=== PATIENT | male | born 1945 | race Caucasian/White ===

== ENCOUNTER 2019-11-06 17:47 | Inpatient (IN) ==
[2019-11-06] MEDS ORDERED: Potassium Chloride Elixir 20 MEQ/15 ML UDC PO ONE (18:22)
[2019-11-06] MEDS ORDERED: Pantoprazole 40 MG VIAL IVP ONE (18:39)
[2019-11-06 19:27] LABS: Hematocrit 34.9 % (37.5-50.1); Hemoglobin 11.2 g/dL (12.9-16.9)
[2019-11-06] MEDS ORDERED: Naloxone 0.4 MG/ML INJ IVP PRN (20:54)
[2019-11-06] MEDS ORDERED: Ondansetron 4 MG/2 ML VIAL IVP PRN (20:54)
[2019-11-06] MEDS ORDERED: 0.9 % Sodium Chloride 1,000 ML IVC SCH (21:00)
[2019-11-06 21:36] LABS: Basophils % 0.3 %; Eosinophils # 0.4 K/mcL (0.0-0.6); Eosinophils % 2.3 %; Hematocrit 34.9 % (37.5-50.1); Hemoglobin 11.5 g/dL (12.9-16.9); Immature Granulocytes % 0.4 % (0-4); Lymphocytes # 1.5 K/mcL (0.6-4.6); Lymphocytes % 9.9 %; Mean Corpuscular Hemoglobin 26.1 pg (28.0-33.3); Mean Corpuscular Volume 79.1 fL (83.0-100.0); Mean Platelet Volume 10.7 fL (9.4-12.4); Monocytes # 1.1 K/mcL (0.0-1.3); Neutrophils # 12.5 K/mcL (1.6-8.9); Platelet Count 419 K/mcL (140-400); Red Blood Count 4.41 M/mcL (4.19-5.50); Red Cell Distribution Width 14.5 % (11.5-14.5); Segmented Neutrophils % 80.1 %; White Blood Count 15.6 K/mcL (4.3-11.1)
[2019-11-06 21:41] LABS: INR 1.3; Prothrombin Time 14.9 Seconds (9.4-12.1)
[2019-11-06 21:43] LABS: Activated Partial Thrombo Time 38.5 Seconds (26.0-36.0)
[2019-11-06 21:55] LABS: BUN/Creatinine Ratio 24 (6-26); Blood Urea Nitrogen 22 mg/dL (8-23); Calcium 8.7 mg/dL (8.6-10.3); Carbon Dioxide 27 mEq/L (23-29); Chloride 99 mEq/L (98-107); Glucose 126 mg/dL (70-105); Osmolality,Calculated 285 (280-300); Potassium 3.6 mEq/L (3.5-5.1); Sodium 135 mEq/L (136-145); eGFR For African Americans > 60 (> 60); eGFR For Non-African Americans > 60 (> 60)
[2019-11-06] MEDS ORDERED: cefTRIAXone 1,000 MG in Water for inj. (sterile) 10 ML IVP ONE (23:31)
[2019-11-06] MEDS: Gabapentin 400 MG CAPSULE PO SCH (23:48)
[2019-11-06] MEDS: carvediloL 25 MG TABLET PO SCH (23:49)
[2019-11-07 01:15] LABS: Hematocrit 32.7 % (37.5-50.1); Hemoglobin 10.7 g/dL (12.9-16.9)
[2019-11-07 05:45] LABS: Basophils % 0.4 %; Eosinophils # 0.5 K/mcL (0.0-0.6); Eosinophils % 4.3 %; Hemoglobin 10.4 g/dL (12.9-16.9); Immature Granulocytes % 0.4 % (0-4); Lymphocytes # 1.6 K/mcL (0.6-4.6); Lymphocytes % 14.2 %; Mean Corpuscular HGB Conc 32.5 g/dL (31.6-35.5); Mean Corpuscular Hemoglobin 25.8 pg (28.0-33.3); Mean Corpuscular Volume 79.4 fL (83.0-100.0); Monocytes # 0.9 K/mcL (0.0-1.3); Neutrophils # 8.3 K/mcL (1.6-8.9); Platelet Count 353 K/mcL (140-400); Red Blood Count 4.03 M/mcL (4.19-5.50); Red Cell Distribution Width 14.5 % (11.5-14.5); Segmented Neutrophils % 72.7 %; White Blood Count 11.4 K/mcL (4.3-11.1)
[2019-11-07 06:00] LABS: % Iron Saturation 8 % (20-55); Iron 19 mcg/dL (65-175); Transferrin 174 mg/dL (203-362)
[2019-11-07 06:01] LABS: BUN/Creatinine Ratio 22 (6-26); Blood Urea Nitrogen 19 mg/dL (8-23); Calcium 8.3 mg/dL (8.6-10.3); Carbon Dioxide 25 mEq/L (23-29); Chloride 103 mEq/L (98-107); Glucose 113 mg/dL (70-105); Osmolality,Calculated 289 (280-300); Potassium 3.3 mEq/L (3.5-5.1); Sodium 138 mEq/L (136-145); eGFR For African Americans > 60 (> 60); eGFR For Non-African Americans > 60 (> 60)
[2019-11-07] MEDS: Pantoprazole 40 MG VIAL IVP SCH ×2 (06:19→17:12)
[2019-11-07] MEDS ORDERED: Potassium Chloride 40 MEQ, Lidocaine 1% 2 ML in 0.9 % Sodium Chloride 500 ML IVPB ONE (08:19)
[2019-11-07] MEDS: carvediloL 25 MG TABLET PO SCH ×2 (08:37→17:11)
[2019-11-07] MEDS: Gabapentin 400 MG CAPSULE PO SCH ×2 (08:37→21:50)
[2019-11-07] MEDS ORDERED: Acetaminophen 325 MG TABLET PO PRN (11:34)
[2019-11-07 12:37] LABS: Hematocrit 31.8 % (37.5-50.1)
[2019-11-07] MEDS ORDERED: SODIUM CHLORIDE/NAHCO3/KCL/PEG 4,000 ML SOLN.RECON PO ONE (17:00)
[2019-11-07 20:49] LABS: Hematocrit 33.6 % (37.5-50.1); Hemoglobin 10.6 g/dL (12.9-16.9)
[2019-11-08 05:06] LABS: Basophils % 0.5 %; Eosinophils # 0.7 K/mcL (0.0-0.6); Hematocrit 31.3 % (37.5-50.1); Immature Granulocytes % 0.4 % (0-4); Lymphocytes # 1.9 K/mcL (0.6-4.6); Mean Corpuscular HGB Conc 31.9 g/dL (31.6-35.5); Mean Corpuscular Hemoglobin 25.7 pg (28.0-33.3); Mean Corpuscular Volume 80.5 fL (83.0-100.0); Mean Platelet Volume 10.8 fL (9.4-12.4); Monocytes # 0.8 K/mcL (0.0-1.3); Monocytes % 9.4 %; Neutrophils # 4.7 K/mcL (1.6-8.9); Platelet Count 327 K/mcL (140-400); Red Blood Count 3.89 M/mcL (4.19-5.50); Red Cell Distribution Width 14.5 % (11.5-14.5); Segmented Neutrophils % 57.7 %; White Blood Count 8.1 K/mcL (4.3-11.1)
[2019-11-08 05:22] LABS: BUN/Creatinine Ratio 19 (6-26); Blood Urea Nitrogen 16 mg/dL (8-23); Calcium 8.2 mg/dL (8.6-10.3); Carbon Dioxide 25 mEq/L (23-29); Chloride 107 mEq/L (98-107); Glucose 90 mg/dL (70-105); Osmolality,Calculated 293 (280-300); Potassium 3.1 mEq/L (3.5-5.1); Sodium 141 mEq/L (136-145); eGFR For African Americans > 60 (> 60); eGFR For Non-African Americans > 60 (> 60)
[2019-11-08] MEDS: Pantoprazole 40 MG VIAL IVP SCH (06:18)
[2019-11-08] MEDS ORDERED: Lidocaine -MPF 2% 2 ML VIAL ONE (07:00)
[2019-11-08] MEDS ORDERED: Potassium Chloride 40 MEQ, Lidocaine 1% 2 ML in 0.9 % Sodium Chloride 500 ML IVPB ONE (07:08)
[2019-11-08] MEDS ORDERED: 0.9 % Sodium Chloride 1,000 ML IVC SCH (07:30)
[2019-11-08 07:53] LABS: Magnesium 2.1 mg/dL (1.6-2.6)
[2019-11-08] MEDS ORDERED: Isovue-370 500 ML BOTTLE IVP ONE ×2 (09:22→12:25)
[2019-11-08] MEDS: Gabapentin 400 MG CAPSULE PO SCH ×2 (09:28→21:25)
[2019-11-08] MEDS: carvediloL 25 MG TABLET PO SCH ×2 (09:28→16:17)
[2019-11-08] MEDS ORDERED: Simethicone 40 MG/0.6 ML MLS IR ONE (09:30)
[2019-11-08 16:14] LABS: Hepatitis B Surface Antibody < 3.10 mIU/mL
[2019-11-08] MEDS: Sucralfate 1 GM TABLET PO SCH (16:17)
[2019-11-08 16:24] LABS: Hepatitis B Surface Antigen Nonreactive (Nonreactive)
[2019-11-08 16:53] LABS: Hepatitis B Core IgM Nonreactive (Nonreactive)
[2019-11-09 02:51] LABS: Basophils # 0.1 K/mcL (0.0-0.2); Basophils % 0.6 %; Eosinophils # 0.7 K/mcL (0.0-0.6); Eosinophils % 8.4 %; Hematocrit 30.6 % (37.5-50.1); Hemoglobin 9.7 g/dL (12.9-16.9); Immature Granulocytes % 0.3 % (0-4); Lymphocytes # 1.8 K/mcL (0.6-4.6); Lymphocytes % 22.8 %; Mean Corpuscular HGB Conc 31.7 g/dL (31.6-35.5); Mean Corpuscular Hemoglobin 25.8 pg (28.0-33.3); Mean Corpuscular Volume 81.4 fL (83.0-100.0); Mean Platelet Volume 11.3 fL (9.4-12.4); Monocytes # 0.7 K/mcL (0.0-1.3); Monocytes % 8.8 %; Neutrophils # 4.6 K/mcL (1.6-8.9); Platelet Count 341 K/mcL (140-400); Red Blood Count 3.76 M/mcL (4.19-5.50); Red Cell Distribution Width 14.3 % (11.5-14.5); Segmented Neutrophils % 59.1 %; White Blood Count 7.7 K/mcL (4.3-11.1)
[2019-11-09 03:10] LABS: BUN/Creatinine Ratio 12 (6-26); Blood Urea Nitrogen 9 mg/dL (8-23); Calcium 8.4 mg/dL (8.6-10.3); Carbon Dioxide 23 mEq/L (23-29); Chloride 108 mEq/L (98-107); Glucose 105 mg/dL (70-105); Osmolality,Calculated 287 (280-300); Potassium 3.3 mEq/L (3.5-5.1); Sodium 139 mEq/L (136-145); eGFR For African Americans > 60 (> 60); eGFR For Non-African Americans > 60 (> 60)
[2019-11-09] MEDS ORDERED: Potassium Chloride 40 MEQ, Lidocaine 1% 2 ML in 0.9 % Sodium Chloride 500 ML IVPB ONE (07:14)
[2019-11-09] MEDS: Sucralfate 1 GM TABLET PO SCH ×3 (07:55→16:58)
[2019-11-09] MEDS: Gabapentin 400 MG CAPSULE PO SCH ×2 (07:55→20:41)
[2019-11-09] MEDS: carvediloL 25 MG TABLET PO SCH ×2 (07:55→16:58)
[2019-11-10 02:04] LABS: Basophils # 0.1 K/mcL (0.0-0.2); Basophils % 0.6 %; Eosinophils # 0.7 K/mcL (0.0-0.6); Eosinophils % 8.1 %; Hematocrit 32.8 % (37.5-50.1); Hemoglobin 10.3 g/dL (12.9-16.9); Immature Granulocytes % 0.5 % (0-4); Lymphocytes # 1.9 K/mcL (0.6-4.6); Lymphocytes % 21.1 %; Mean Corpuscular HGB Conc 31.4 g/dL (31.6-35.5); Mean Corpuscular Hemoglobin 25.1 pg (28.0-33.3); Mean Platelet Volume 10.8 fL (9.4-12.4); Monocytes # 0.7 K/mcL (0.0-1.3); Monocytes % 7.8 %; Neutrophils # 5.5 K/mcL (1.6-8.9); Platelet Count 354 K/mcL (140-400); Red Cell Distribution Width 14.4 % (11.5-14.5); Segmented Neutrophils % 61.9 %; White Blood Count 8.9 K/mcL (4.3-11.1)
[2019-11-10 02:22] LABS: BUN/Creatinine Ratio 12 (6-26); Blood Urea Nitrogen 9 mg/dL (8-23); Calcium 8.6 mg/dL (8.6-10.3); Carbon Dioxide 24 mEq/L (23-29); Chloride 106 mEq/L (98-107); Glucose 92 mg/dL (70-105); Osmolality,Calculated 284 (280-300); Potassium 3.4 mEq/L (3.5-5.1); Sodium 138 mEq/L (136-145); eGFR For African Americans > 60 (> 60); eGFR For Non-African Americans > 60 (> 60)
[2019-11-10] MEDS: Gabapentin 400 MG CAPSULE PO SCH ×2 (07:51→20:29)
[2019-11-10] MEDS: carvediloL 25 MG TABLET PO SCH ×2 (07:52→17:30)
[2019-11-10] MEDS: Sucralfate 1 GM TABLET PO SCH ×3 (07:52→17:30)
[2019-11-10] MEDS: amLODIPine 5 MG TABLET PO SCH (07:52)
[2019-11-10] MEDS ORDERED: *HR* Propofol 500 MG/50 ML BOTTLE IVC ONE (12:14)
[2019-11-10] MEDS ORDERED: Lidocaine 2% Syringe 100 MG/5 ML IV ONE (12:14)
[2019-11-10] MEDS ORDERED: E-Z-PAQUE (BARIUM SULF) SUSP 1 BOTTLE PO ONE (15:54)
[2019-11-10 20:47] LABS: Adenovirus F 40/41 PCR Not detected (Not detect); Astrovirus PCR Not detected (Not detect); C.difficile Toxin A/B Gene PCR Not detected (Not detect); Campylobacter by PCR Not detected (Not detect); Cryptosporidium by PCR Not detected (Not detect); Cyclospora cayetanensis PCR Not detected (Not detect); E. coli O157 by PCR Not detected (Not detect); Entamoeba histolytica PCR Not detected (Not detect); Enteroaggregative E.coli(EAEC) Not detected (Not detect); Enteropathogenic E.coli(EPEC) Not detected (Not detect); Enterotoxigenic E.coli (ETEC) Not detected (Not detect); Giardia lamblia PCR Not detected (Not detect); Norovirus GI/GII PCR Not detected (Not detect); Plesiomonas shigelloides PCR Not detected (Not detect); Rotavirus A PCR Not detected (Not detect); Salmonella PCR Not detected (Not detect); Sapovirus PCR Not detected (Not detect); Shig/EnteroinvasiveE coli EIEC Not detected (Not detect); Shigalike tox-prod E coli STEC Not detected (Not detect); Vibrio PCR Not detected (Not detect); Vibrio cholerae PCR Not detected (Not detect); Yersinia enterocolitica PCR Not detected (Not detect)
[2019-11-10 23:03] LABS: QuantiFERON Mitogen minus NIL 4.68 IU/mL
[2019-11-11 07:27] VITALS: BP 127/75
[2019-11-11 08:12] LABS: BUN/Creatinine Ratio 18 (6-26); Blood Urea Nitrogen 15 mg/dL (8-23); Calcium 8.8 mg/dL (8.6-10.3); Carbon Dioxide 24 mEq/L (23-29); Chloride 100 mEq/L (98-107); Glucose 91 mg/dL (70-105); Magnesium 2.1 mg/dL (1.6-2.6); Osmolality,Calculated 290 (280-300); Potassium 3.7 mEq/L (3.5-5.1); Sodium 140 mEq/L (136-145); eGFR For African Americans > 60 (> 60); eGFR For Non-African Americans > 60 (> 60)
[2019-11-11] MEDS: carvediloL 25 MG TABLET PO SCH (09:09)
[2019-11-11] MEDS: Sucralfate 1 GM TABLET PO SCH ×2 (09:09→11:44)
[2019-11-11] MEDS: amLODIPine 5 MG TABLET PO SCH (09:13)
[2019-11-11] MEDS: Gabapentin 400 MG CAPSULE PO SCH (09:13)
[2019-11-11 11:22] LABS: QuantiFERON-TB Gold In-Tube NEGATIVE (Negative)
[2019-11-12 07:10] LABS: Saccharomyces cerevisiae IgA 4.6 Units (0.0-24.9)
== END 2019-11-11 12:15 | disposition home or self-care (01) | DRG 378 ==
LOC: 3ANU 17:47 → EMEROOARM 17:47 → SUATTDRO 19:42 → 3ANU 20:28
PROVIDERS: ADMIT Internal Medicine; ATTEND Internal Medicine

== ENCOUNTER 2019-12-06 06:41 | Inpatient (IN) ==
[~2019-12-06 06:41] MED LIST: Acetaminophen IV 1,000 MG/100 ML INFUS..BTL IVPB ONE
[2019-12-06] MEDS ORDERED: Acetaminophen IV 1,000 MG/100 ML INFUS..BTL IVPB ONE (08:00)
[2019-12-06] MEDS ORDERED: Famotidine 20 MG/2 ML VIAL IVP ONE (08:00)
[2019-12-06] MEDS ORDERED: cefOXitin 2,000 MG in Water for inj. (sterile) 20 ML IVP ONE (08:05)
[2019-12-06] MEDS ORDERED: *HR* Midazolam HCl 2 MG/2 ML VIAL ONE (08:06)
[2019-12-06] MEDS ORDERED: *HR* Propofol 200 MG/20 ML VIAL IVP ONE (08:06)
[2019-12-06] MEDS ORDERED: Dexamethasone 4 MG/ML VIAL ONE (08:06)
[2019-12-06] MEDS ORDERED: Lidocaine -MPF 2% 2 ML VIAL ONE (08:06)
[2019-12-06] MEDS ORDERED: *HR* Succinylcholine 200 MG/10 ML VIAL IVP ONE (08:06)
[2019-12-06] MEDS ORDERED: *HR* Rocuronium Bromide 50 MG/5 ML VIAL ONE (08:06)
[2019-12-06] MEDS ORDERED: Ondansetron 4 MG/2 ML VIAL ONE (08:06)
[2019-12-06] MEDS ORDERED: *HR* FentaNYL (PF) 100 MCG/2 ML VIAL ONE ×2 (08:06→09:48)
[2019-12-06] MEDS: Ringers Solution, Lactated 1,000 ML IVC SCH ×2 (08:25→10:09)
[2019-12-06] MEDS ORDERED: *HR* Magnesium Sulfate 1 GM/2 ML VIAL ONE (09:55)
[2019-12-06] MEDS ORDERED: *HR* Labetalol 20 MG/4 ML SYRINGE IVP PRN (10:00)
[2019-12-06] MEDS ORDERED: *HR* OxyCODONE Immed Rel 5 MG TABLET PO PRN (10:00)
[2019-12-06] MEDS ORDERED: *HR* Promethazine 25 MG/ML VIAL IVP PRN (10:00)
[2019-12-06] MEDS ORDERED: *HR* HYDROmorphone 2 MG TABLET PO PRN (10:00)
[2019-12-06] MEDS ORDERED: *HR* HYDROmorphone (PF) 1 MG/ML SYRINGE IVP PRN (10:00)
[2019-12-06] MEDS ORDERED: EPHEDrine 50 MG/ML VIAL ONE (10:08)
[2019-12-06] MEDS ORDERED: *HR* HYDROMORPHONE 2 MG/ML VIAL ONE (11:08)
[2019-12-06] MEDS ORDERED: Ondansetron 4 MG/2 ML VIAL IVP PRN (12:27)
[2019-12-06] MEDS ORDERED: Naloxone 0.4 MG/ML INJ IVP PRN (12:27)
[2019-12-06] MEDS: *HR* Metoprolol 5 MG/5 ML VIAL IVP PRN ×2 (13:09→20:03)
[2019-12-06] MEDS: 0.9 % Sodium Chloride 1,000 ML IVC SCH (13:09)
[2019-12-06] MEDS: Piperacillin/Tazobactam 3.375 GM in 0.9 % Sodium Chloride Mini Bag 100 ML IVPB SCH (15:34)
[2019-12-06] MEDS: Acetaminophen IV 1,000 MG/100 ML INFUS..BTL IVPB SCH (18:00)
[2019-12-06] MEDS: carvediloL 25 MG TABLET PO SCH (18:00)
[2019-12-06] MEDS: Gabapentin 400 MG CAPSULE PO SCH (20:03)
[2019-12-06] MEDS: Sucralfate 1 GM TABLET PO SCH (20:03)
[2019-12-07] MEDS: Piperacillin/Tazobactam 3.375 GM in 0.9 % Sodium Chloride Mini Bag 100 ML IVPB SCH ×2 (00:04→08:19)
[2019-12-07] MEDS: Acetaminophen IV 1,000 MG/100 ML INFUS..BTL IVPB SCH ×5 (00:04→23:53)
[2019-12-07] MEDS: 0.9 % Sodium Chloride 1,000 ML IVC SCH ×2 (02:51→17:44)
[2019-12-07 05:13] LABS: Basophils % 0.3 %; Eosinophils % 0.2 %; Hematocrit 36.5 % (37.5-50.1); Hemoglobin 11.8 g/dL (12.9-16.9); Immature Granulocytes % 0.4 % (0-4); Lymphocytes # 1.5 K/mcL (0.6-4.6); Lymphocytes % 10.6 %; Mean Corpuscular HGB Conc 32.3 g/dL (31.6-35.5); Mean Corpuscular Hemoglobin 26.4 pg (28.0-33.3); Mean Corpuscular Volume 81.7 fL (83.0-100.0); Mean Platelet Volume 10.8 fL (9.4-12.4); Monocytes # 0.9 K/mcL (0.0-1.3); Monocytes % 6.3 %; Neutrophils # 11.9 K/mcL (1.6-8.9); Platelet Count 335 K/mcL (140-400); Red Blood Count 4.47 M/mcL (4.19-5.50); Red Cell Distribution Width 16.2 % (11.5-14.5); Segmented Neutrophils % 82.2 %
[2019-12-07 05:17] LABS: White Blood Count 14.5 K/mcL (4.3-11.1)
[2019-12-07 05:32] LABS: BUN/Creatinine Ratio 16 (6-26); Blood Urea Nitrogen 13 mg/dL (8-23); Calcium 8.2 mg/dL (8.6-10.3); Carbon Dioxide 24 mEq/L (23-29); Chloride 106 mEq/L (98-107); Glucose 111 mg/dL (70-105); Magnesium 2.1 mg/dL (1.6-2.6); Osmolality,Calculated 291 (280-300); Phosphorous 2.5 mg/dL (2.7-4.5); Potassium 3.3 mEq/L (3.5-5.1); Sodium 140 mEq/L (136-145); eGFR For African Americans > 60 (> 60); eGFR For Non-African Americans > 60 (> 60)
[2019-12-07] MEDS ORDERED: Potassium Chloride 20 MEQ, Lidocaine 1% 2 ML in 0.9 % Sodium Chloride 250 ML IVPB ONE (07:30)
[2019-12-07] MEDS: carvediloL 25 MG TABLET PO SCH ×2 (08:19→17:44)
[2019-12-07] MEDS: Gabapentin 400 MG CAPSULE PO SCH ×2 (08:20→20:51)
[2019-12-07] MEDS: amLODIPine 5 MG TABLET PO SCH (08:20)
[2019-12-07] MEDS: *HR* Heparin 5,000 UNIT/ML VIAL SQ SCH ×2 (08:20→17:44)
[2019-12-07] MEDS: Sucralfate 1 GM TABLET PO SCH ×2 (08:20→20:52)
[2019-12-07] MEDS: (Prevagen 1 TAB) PO SCH (08:21)
[2019-12-07] MEDS ORDERED: Ketorolac 15 MG/ML VIAL IVP SCH (12:00)
[2019-12-08] MEDS: Acetaminophen IV 1,000 MG/100 ML INFUS..BTL IVPB SCH (04:55)
[2019-12-08] MEDS: *HR* Heparin 5,000 UNIT/ML VIAL SQ SCH ×2 (04:56→17:39)
[2019-12-08] MEDS: Gabapentin 400 MG CAPSULE PO SCH ×2 (07:46→20:08)
[2019-12-08] MEDS: amLODIPine 5 MG TABLET PO SCH (07:47)
[2019-12-08] MEDS: Sucralfate 1 GM TABLET PO SCH ×2 (07:47→20:09)
[2019-12-08] MEDS: (Prevagen 1 TAB) PO SCH (07:47)
[2019-12-08] MEDS: carvediloL 25 MG TABLET PO SCH ×2 (07:47→16:42)
[2019-12-08] MEDS: 0.9 % Sodium Chloride 1,000 ML IVC SCH (08:00)
[2019-12-08 08:09] LABS: Basophils % 0.4 %; Eosinophils # 0.6 K/mcL (0.0-0.6); Eosinophils % 4.8 %; Hematocrit 43.9 % (37.5-50.1); Immature Granulocytes % 0.4 % (0-4); Lymphocytes # 1.7 K/mcL (0.6-4.6); Lymphocytes % 14.8 %; Mean Corpuscular Hemoglobin 25.4 pg (28.0-33.3); Mean Corpuscular Volume 81.9 fL (83.0-100.0); Mean Platelet Volume 10.7 fL (9.4-12.4); Monocytes # 0.6 K/mcL (0.0-1.3); Monocytes % 5.3 %; Neutrophils # 8.5 K/mcL (1.6-8.9); Platelet Count 354 K/mcL (140-400); Red Blood Count 5.36 M/mcL (4.19-5.50); Segmented Neutrophils % 74.3 %; White Blood Count 11.4 K/mcL (4.3-11.1)
[2019-12-08 08:10] LABS: Hemoglobin 13.6 g/dL (12.9-16.9)
[2019-12-08 08:16] LABS: BUN/Creatinine Ratio 12 (6-26); Blood Urea Nitrogen 8 mg/dL (8-23); Calcium 8.9 mg/dL (8.6-10.3); Carbon Dioxide 25 mEq/L (23-29); Chloride 100 mEq/L (98-107); Glucose 103 mg/dL (70-105); Magnesium 1.9 mg/dL (1.6-2.6); Osmolality,Calculated 285 (280-300); Phosphorous 2.4 mg/dL (2.7-4.5); Potassium 3.4 mEq/L (3.5-5.1); Sodium 138 mEq/L (136-145); eGFR For African Americans > 60 (> 60); eGFR For Non-African Americans > 60 (> 60)
[2019-12-08] MEDS: *HR* Metoprolol 5 MG/5 ML VIAL IVP PRN (08:29)
[2019-12-08] MEDS ORDERED: Potassium Phosphate 44 MEQ in 0.9 % Sodium Chloride 250 ML IVPB ONE (10:15)
[2019-12-08] MEDS: *HR* OxyCODONE/APAP 5/325 TABLET PO PRN (10:49)
[2019-12-08] MEDS: gemfibroziL 600 MG TABLET PO SCH (16:42)
[2019-12-08] MEDS ORDERED: Simethicone 80 MG TAB.CHEW PO PRN (22:23)
[2019-12-09] MEDS: *HR* Heparin 5,000 UNIT/ML VIAL SQ SCH (05:44)
[2019-12-09 06:25] LABS: Basophils % 0.2 %; Eosinophils # 0.7 K/mcL (0.0-0.6); Eosinophils % 8.1 %; Hematocrit 41.3 % (37.5-50.1); Immature Granulocytes % 0.4 % (0-4); Lymphocytes # 1.7 K/mcL (0.6-4.6); Lymphocytes % 20.5 %; Mean Corpuscular HGB Conc 31.5 g/dL (31.6-35.5); Mean Corpuscular Hemoglobin 25.3 pg (28.0-33.3); Mean Corpuscular Volume 80.5 fL (83.0-100.0); Mean Platelet Volume 11.4 fL (9.4-12.4); Monocytes # 0.7 K/mcL (0.0-1.3); Monocytes % 8.7 %; Neutrophils # 5.3 K/mcL (1.6-8.9); Platelet Count 360 K/mcL (140-400); Red Blood Count 5.13 M/mcL (4.19-5.50); Red Cell Distribution Width 15.7 % (11.5-14.5); Segmented Neutrophils % 62.1 %; White Blood Count 8.5 K/mcL (4.3-11.1)
[2019-12-09 06:45] LABS: BUN/Creatinine Ratio 18 (6-26); Blood Urea Nitrogen 14 mg/dL (8-23); Calcium 8.9 mg/dL (8.6-10.3); Carbon Dioxide 25 mEq/L (23-29); Chloride 102 mEq/L (98-107); Glucose 101 mg/dL (70-105); Osmolality,Calculated 285 (280-300); Phosphorous 3.7 mg/dL (2.7-4.5); Potassium 3.4 mEq/L (3.5-5.1); Sodium 137 mEq/L (136-145); eGFR For African Americans > 60 (> 60); eGFR For Non-African Americans > 60 (> 60)
[2019-12-09] MEDS: gemfibroziL 600 MG TABLET PO SCH (07:25)
[2019-12-09] MEDS: carvediloL 25 MG TABLET PO SCH (07:25)
[2019-12-09] MEDS: Sucralfate 1 GM TABLET PO SCH (07:25)
[2019-12-09] MEDS: amLODIPine 5 MG TABLET PO SCH (07:26)
[2019-12-09] MEDS: *HR* OxyCODONE/APAP 5/325 TABLET PO PRN (07:26)
[2019-12-09] MEDS: (Prevagen 1 TAB) PO SCH (07:26)
[2019-12-09] MEDS: Gabapentin 400 MG CAPSULE PO SCH (07:26)
[2019-12-09 10:07] VITALS: BP 120/83
== END 2019-12-09 13:20 | disposition home or self-care (01) | DRG 331 ==
LOC: SAMDAY 06:41 → 3ANU 12:25
PROVIDERS: ADMIT Surgery; ATTEND Surgery